=== PATIENT | male | born 1975 | race Caucasian/White ===

== ENCOUNTER → 2016-06-11 | Outpatient (CLI) | payer BC ==
[~2016-06-11] MED LIST: CYCL5TAB PO; MOME50SP5
[2016-06-11 13:41] LABS: ALT/SGPT 52 U/L (12-78); AST/SGOT 21 U/L (15-37); BLOOD UREA NITROGEN 27 mg/dl (7-18); CALCIUM 9.2 mg/dl (8.5-10.1); CARBON DIOXIDE 27 mmol/L (21-32); CHLORIDE 108 mmol/L (98-107); GLUCOSE 98 mg/dl (70-99); POTASSIUM 4.3 mmol/L (3.5-5.1); SODIUM 142 mmol/L (136-145)
[2016-06-11 13:43] LABS: ALB/GLOB RATIO 1.4 (0.9-2); ALKALINE PHOSPHATASE 59 U/L (45-117); CHOLESTEROL 212 mg/dl (0-200); CHOLESTEROL/HDL RATIO 4.9; HDL CHOLESTEROL 43 mg/dl; LDL CHOLESTEROL CALCULATED 144 mg/dl; TRIGLYCERIDES 125 mg/dl (0-150); VERY LOW DENSITY LIPOPROT CALC 25 mg/dl
== END | disposition home or self-care (01) ==
LOC: C.LABPBG 08:55
PROVIDERS: ATTEND Neuromusculoskeletal Medicine & OMM
DX: Z00.00 Encounter for general adult medical examination without abnormal findings (principal)

== ENCOUNTER → 2016-12-20 | Outpatient (CLI) | payer BC | END | disposition home or self-care (01) | LOC: C.LABPBG 09:28 | PROVIDERS: ATTEND Neuromusculoskeletal Medicine & OMM | DX: K76.0 Fatty (change of) liver, not elsewhere classified (principal) ==

== ENCOUNTER → 2017-03-27 | Outpatient (CLI) | payer BC ==
[2017-03-27 11:58] LABS: BASO % 0.4 %; BASO ABS # 0.02 K/uL (0-0.2); COMPLETE YES; EOS % 5.2 %; HEMATOCRIT 47.8 % (42-52); IG% 0.2 %; LYMPH % 22.8 %; LYMPH ABS # 1.09 K/uL (1.2-3.4); MEAN CELL VOLUME 91.6 fL (80-100); MEAN CORPUSCULAR HEMOGLOBIN 31.8 pg (25-34); MEAN CORPUSCULAR HGB CONC 34.7 g/dl (32-36); MEAN PLATELET VOLUME 10.8 fL (7.4-10.4); MONO % 10.2 %; NEUT % 61.2 %; PLATELET COUNT 219 K/uL (130-400); RED BLOOD COUNT 5.22 M/uL (4.7-6.1); WHITE BLOOD COUNT 4.79 K/uL (4.8-10.8)
[2017-03-27 12:36] LABS: ESTIMATED AVERAGE GLUCOSE 105 mg/dl; HA1C FLAG Normal (Normal)
[2017-03-27 12:46] LABS: ALT/SGPT 71 U/L (12-78); AST/SGOT 25 U/L (15-37); BLOOD UREA NITROGEN 24 mg/dl (7-18); BUN/CREATININE RATIO 20.7 (10-20); CALCIUM 8.9 mg/dl (8.5-10.1); CARBON DIOXIDE 25 mmol/L (21-32); CHLORIDE 107 mmol/L (98-107); CREATININE 1.18 mg/dl (0.60-1.40); GLUCOSE 107 mg/dl (70-99); HDL CHOLESTEROL 51 mg/dl; POTASSIUM 4.4 mmol/L (3.5-5.1); SODIUM 138 mmol/L (136-145)
[2017-03-27 12:57] LABS: ALB/GLOB RATIO 1.3 (0.9-2); ALKALINE PHOSPHATASE 67 U/L (45-117); CHOLESTEROL 225 mg/dl (0-200); CHOLESTEROL/HDL RATIO 4.4; LDL CHOLESTEROL CALCULATED 144 mg/dl; TRIGLYCERIDES 151 mg/dl (0-150); VERY LOW DENSITY LIPOPROT CALC 30 mg/dl
== END | disposition home or self-care (01) ==
LOC: C.LABPBG 08:13
PROVIDERS: ATTEND Family Medicine
DX: R20.2 Paresthesia of skin (principal); E78.5 Hyperlipidemia, unspecified

== ENCOUNTER → 2017-08-07 | Outpatient (CLI) | payer BC ==
--- NOTE | 2017-08-07 12:27 | DIAGNOSTIC IMAGING REPORT ---
NUCLEAR GASTRIC EMPTYING STUDY: CLINICAL HISTORY: R14.0 Abdominal [id number] Early [id number] COMPARISON STUDY: TECHNIQUE: Following the oral administration of 1.1 mCi of technetium 99m sulfur colloid in egg sandwich and 8 ounces of water, static abdominal images are performed anteriorly and posteriorly at 0 minutes, 1 hour, 2 hours, and 4 hour time intervals. Gastric emptying was calculated utilizing the geometric mean method. FINDINGS: There is approximately 68 % gastric activity remaining at the 1 hour time interval, 27 % at the 2 hour time interval (normal is less than 60%), and 5 % remaining at the 4 hour time interval (normal is less than 10%). These findings are consistent with a normal study IMPRESSION: Findings are consistent with a normal study. Electronically signed by: Barron Razo M.D. 08/07/2017 12:25 PM Dictated Date/Time: 08/07/2017 12:25 PM
== END | disposition home or self-care (01) ==
LOC: C.NUCL 07:49
PROVIDERS: ATTEND Family Medicine
DX: R68.81 Early satiety (principal); R14.0 Abdominal distension (gaseous)

== ENCOUNTER 2022-12-05 05:39 | Observation (INO) ==
--- NOTE | 2022-11-23 16:08 | Anesthesiology Consultation ---
Date of Service November 23, 2022 Assessment & Plan (1) Encounter for pre-operative examination: Plan - will attempt to obtain office note and testing from [facility] 11/07/22 ER visit. - cardiology clearance 11/21/22 [facility]: "...was seen at the end of [address] Espinal. At that time the patient was experiencing some shortness of breath and had a recent COVID infection. Patient went on to have a stress test that was negative. He had his blood pressure medication adjusted. His symptoms resolved and he has been doing well. Unfortunately, he has a cervical radiculopathy that will require surgery this plan for early December. He is here today for preoperative risk assessment. He has no ongoing cardiac symptoms today...The Reagan criteria would indicate the patient's risk for this surgery is 0.4%. No additional cardiac testing will change this risk assessment. He is currently optimally medically managed and should continue his blood pressure medication through the surgery. We will follow-up with the patient on an as-needed basis..." - COVID screening: Per documentation writer on 11/23/2022: Travel screen-returned from [place] 2 weeks ago, no known COVID-19 positive contacts or current COVID-19 related symptoms in past 2 weeks. To surgeon's discretion if preop COVID testing is needed. Chart Review Chart Review: Pending: Refer to Additional Notes / Consult section and Patient NOT seen in Pre Admission Testing History Surgery Operation Date: 12/05/22 11:05 Proposed Procedures p C6-C7 Anterior Cervical Discectomy and Fusion, Spinal Cord Monitoring - Dorian Martinez, Height/Weight Height: 5 ft 11 in Weight: 115.666 kg Allergies Allergy/AdvReac Type Severity Reaction Status Date / Time No Known Drug Allergies Allergy Verified 10/11/22 08:06 Medications Home Medications Medication Instructions Recorded Confirmed Last Taken clonazepam 0.5 mg tablet 0.5 mg PO HS 08/01/20 11/23/22 08/07/20 lamotrigine 250 mg tablet,extended 250 mg PO BID 08/01/20 11/23/22 08/08/20 07:00 release 24 hr pantoprazole 40 mg tablet,delayed 40 mg PO BID #60 tabs 08/08/20 11/23/22 Unknown release (Protonix) fexofenadine 180 mg tablet 180 mg PO DAILY PRN Allergy 09/12/20 11/23/22 Unknown (Jia Allergy) Symptoms #90 tabs fluticasone propionate 50 2 spray intranasal DAILY PRN 09/12/20 11/23/22 Unknown mcg/actuation nasal Allergy Symptoms #16 mL spray,suspension (Flonase Allergy Relief) losartan 100 mg tablet 100 mg PO QAM 10/11/22 11/23/22 Unknown Past Medical History Medical History (Updated 11/23/22 @ 16:16 by Richelle Esparza PA-C) Anxiety and depression Asthma hx-"diagnosed as asthma, used inhaler but wasn't helping, so stopped using">currently having a cough in the mornings-reason for upcoming EGD Bipolar disorder Chronic SI joint pain Environmental allergies hayfever Fatty liver GERD (gastroesophageal reflux disease) History of COVID-2019, and most recent 2020> resolved Hypertension developed after dx with covid Impingement syndrome of right shoulder Suspected sleep apnea per [facility] records, sleep study not completed to chart review Past Family History Family History Father Family hx of colon cancer Malignant neoplasm of esophagus Sister Anxiety Bipolar disorder Depression Mother Hypertension Grandfather (Paternal) Prostate cancer Other No family history of adverse response to anesthesia Denies family history of Ovarian cancer Myocardial infarction Breast cancer Past Surgical History Surgical History History of colonoscopy History of esophagogastroduodenoscopy (EGD) Hx of wisdom tooth extraction Social History Smoking Status: Former smoker tobacco type: cigarettes Do You Dip or Chew Tobacco: No Smoking End Date: 1.5 years ago Hx Alcohol Use: Yes Alcohol type: beer and wine alcohol intake frequency: holidays/special occasions only Hx Substance Use: No substance use type: does not use Lab Results Anesthesia Preop Results Results Anesthesia Widget: WBC 8.87 K/ul (4.8-10.8) 11/21/22 Hgb 16.4 g/dl (14.0-18.0) 11/21/22 Hct 46.4 % (42.0-52.0) 11/21/22 Plt 224 K/uL (130-400) 11/21/22 Na 137 mmol/L (136-145) 11/21/22 K 4.1 mmol/L (3.5-5.1) 11/21/22 Cl 103 mmol/L (98-107) 11/21/22 CO2 24 mmol/L (21-32) 11/21/22 BUN 29 mg/dl (6-23) H 11/21/22 Creat 1.18 mg/dl (0.6-1.4) 11/21/22 Glucose Level 101 mg/dl (70-99(Fasting)) H 11/21/22 PT 10.3 Seconds (9.0-12.0) 11/21/22 PTT 25.5 Seconds (21.0-31.0) 11/21/22 INR 0.9 (0.9-1.1) 11/21/22 Urine Color Yellow 11/21/22 Urine Appearance Clear (Clear) 11/21/22 Urine pH 6.0 (4.5-7.5) 11/21/22 Urine Specific [place] 1.020 (1.000-1.030) 11/21/22 Urine Protein Negative (Negative) 11/21/22 Urine Glucose (UA) Negative (Negative) 11/21/22 Urine Ketones Negative (Negative) 11/21/22 Urine Blood Negative (Negative) 11/21/22 Urine Nitrite Negative (Negative) 11/21/22 Urine Bilirubin Negative (Negative) 11/21/22 Urine Urobilinogen Negative (Negative) 11/21/22 Urine Leukocyte Esterase Negative (Negative) 11/21/22 Blood Type A Negative 11/21/22 Antibody Screen NEGATIVE 11/21/22 Testing Electrocardiogram Date: 11/21/22 NSR, rate 73 bpm Minimal voltage criteria for LVH, may be normal variant Chest X-Ray Date: 11/21/22 No active disease in the chest. Stress Test Date: 05/10/22 Exercise METS 10 MPHR 90% Negative for inducible ischemia EF 55-59% Grade I diastolic dysfunction Mild cLVH No significant valvular disease The proximal ascending thoracic aorta is borderline enlarged 4 cm Mildly enlarged aortic root at 4.5 cm Cervical Spine Date: 11/07/22 CT No evidence of acute osseous abnormality
[2022-12-05] MEDS ORDERED: ACETAMINOPHEN 500 MG TAB PO SCH (06:00)
[2022-12-05] MEDS ORDERED: LR 15ML/HR IV SCH (06:00)
[2022-12-05] MEDS ORDERED: CeleBREX 200 MG CAP PO SCH (06:00)
[2022-12-05] MEDS ORDERED: GABAPENTIN 900 MG DOSE PO SCH (06:00)
[2022-12-05] MEDS ORDERED: SODIUM CHLORIDE 0.9% 1,000 ML IV SCH (06:00)
[2022-12-05] MEDS ORDERED: ceFAZolin 2000MG 2,000 MG/15 ML SYR IV SCH (06:00)
[2022-12-05] MEDS ORDERED: DEXAMETHASONE SOD INJ 4 MG/ML VIAL ONE (07:09)
[2022-12-05] MEDS ORDERED: ROCURONIUM BROMIDE 10 MG/ML 5 ML VIAL IV ONE ×2 (07:09→08:10)
[2022-12-05] MEDS ORDERED: ONDANSETRON INJ 2 MG/ML 2 ML VIAL ONE (07:09)
[2022-12-05] MEDS ORDERED: LIDOCAINE 2% 2 ML VIAL/AMP(20MG/ML) INFIL ONE (07:09)
[2022-12-05] MEDS ORDERED: PROPOFOL IV EMULSION 10 MG/ML 20 ML VIAL IV ONE (07:09)
[2022-12-05] MEDS ORDERED: fentaNYL citrate PF 100 MCG/2 ML VIAL ONE ×2 (07:09→08:41)
[2022-12-05] MEDS ORDERED: SUGAMMADEX SODIUM 200 MG/2 ML VIAL IV ONE (07:10)
[2022-12-05] MEDS ORDERED: MIDAZOLAM HCL 1 MG/ML 2ML VIAL ONE (07:10)
[2022-12-05] MEDS ORDERED: ceFAZolin 330 MG/ML 1 GM VIAL ONE (07:14)
[2022-12-05] MEDS ORDERED: KETAMINE 50 MG/5 ML SYRINGE ONE (07:17)
[2022-12-05] MEDS ORDERED: ATROPINE SULFATE 0.1 MG/ML 10ML SYR IV PRN (07:24)
[2022-12-05] MEDS ORDERED: ePHEDrine sulfate 50 MG/ML AMP IV PRN (07:24)
[2022-12-05] MEDS ORDERED: HYDROmorphone INJ 2 MG/ML SYR/VIAL IV PRN (07:24)
[2022-12-05] MEDS ORDERED: PROMETHAZINE HCL 6.25 MG in SODIUM CHLORIDE 0.9% 50 ML IV PRN (07:24)
[2022-12-05] MEDS ORDERED: ONDANSETRON INJ 2 MG/ML 2 ML VIAL IV PRN ×2 (07:24→10:46)
[2022-12-05] MEDS ORDERED: fentaNYL citrate PF 100 MCG/2 ML VIAL IV PRN (07:24)
--- NOTE | 2022-12-05 07:36 | History & Physical Bridge Note ---
Date of Service December 05, 2022 History & Physical Bridge Note I have examined the patient, reviewed the History & Physical and in the interval since the performance of the History & Physical I have noted the following changes of clinical significance: no changes noted
--- NOTE | 2022-12-05 07:37 | History & Physical Report ---
Date of Service December 05, 2022 Assessment & Plan (1) Cervical radiculopathy: Plan: C6-C7 anterior cervical discectomy and fusion History of Present Illness Chief Complaint: Neck and arm pain Primary Care Provider: JOS Almeida This is a 39-year-old male presents with chronic persistent neck and arm pain and failing since course of nonoperative care is here for surgical invention. Allergies Allergy/AdvReac Type Severity Reaction Status Date / Time No Known Drug Allergies Allergy Verified 12/05/22 06:40 Home Medications Medication Instructions Recorded Confirmed Type clonazepam 0.5 mg tablet 0.5 mg PO HS 08/01/20 12/05/22 History lamotrigine 250 mg tablet,extended 250 mg PO BID 08/01/20 12/05/22 History release 24 hr pantoprazole 40 mg tablet,delayed 40 mg PO BID #60 tabs 08/08/20 12/05/22 Rx release (Protonix) fexofenadine 180 mg tablet 180 mg PO DAILY PRN Allergy 09/12/20 12/05/22 Rx (Jia Allergy) Symptoms #90 tabs fluticasone propionate 50 2 spray intranasal DAILY PRN 09/12/20 12/05/22 Rx mcg/actuation nasal Allergy Symptoms #16 mL spray,suspension (Flonase Allergy Relief) losartan 100 mg tablet 100 mg PO QAM 10/11/22 12/05/22 History Past Med/Surg History Medical History Anxiety and depression Asthma hx-"diagnosed as asthma, used inhaler but wasn't helping, so stopped using">currently having a cough in the mornings-reason for upcoming EGD Bipolar disorder Chronic SI joint pain Environmental allergies hayfever Fatty liver GERD (gastroesophageal reflux disease) History of COVID-19 2019, and most recent 2020> resolved Hypertension developed after dx with covid Impingement syndrome of right shoulder Suspected sleep apnea per [facility] records, sleep study not completed to chart review Surgical History History of colonoscopy History of esophagogastroduodenoscopy (EGD) Hx of wisdom tooth extraction Family History Father Family hx of colon cancer Malignant neoplasm of esophagus Sister Anxiety Bipolar disorder Depression Mother Hypertension Grandfather (Paternal) Prostate cancer Other No family history of adverse response to anesthesia Denies family history of Ovarian cancer Myocardial infarction Breast cancer Social History Smoking Status: Former smoker Smoking End Date: 1.5 years ago; Second Hand Exposure: No; Do You Dip or Chew Tobacco: No; Hx Alcohol Use: Yes Alcohol type: beer and wine Alcohol Intake Frequency: Monthly or Less Hx Substance Use: No Preferred Language: Czech Communication Ability: Effective Hearing Ability: Normal Vice President Digital Strategist Required: No Beliefs That Will Affect Care: None marital status: Current Living Situation: Family Current Living Situation Comment: LIVES WITH AND 2 KIDS current occupational status: employed How many Children do You have: 2 Feels Safe at Home: Yes Safety Concerns: Feels Safe At This Time Childhood Exposure to Second-Hand Smoke: No Diet: regular caffeine: Yes during the past year weight has: remained stable Dental Care, Regularly: Yes Physical Activity Frequency: 5-6 Times per Week Seatbelt Use: always Sunscreen Use: Yes Assistive Devices: Glasses Assistive Devices Comment: reading glasses Physical Exam Physical Exam: Patient is alert and oriented Heart regular rhythm Lungs clear Results & Data Results & Data Vital Signs (Past 12 Hours) Vital Signs Temp Pulse Resp BP Pulse Ox O2 Del Method 12/05/22 06:45 36.6 C 87 20 135/86 97 Room Air
[2022-12-05] MEDS ORDERED: FLOSEAL HEMOSTATIC MATRIX 10ML TOP ONE (08:41)
--- NOTE | 2022-12-05 09:09 | Operative Report ---
Post Operative Report Pre & Post Diagnosis Operation Date: 12/05/22 07:45 Pre-Op Diagnosis: Cervical radiculopathy Post-Op Diagnosis: Cervical radiculopathy I identified the patient and participated in the time-out.: Yes Procedure Operation Date: 12/05/22 07:45 Actual Procedures 1. Intracerebral discectomy with bilateral foraminotomies C6-7. #2 anterior cervical arthrodesis C6-7. #3 placement of Spira 8 mm cage with I factor C6-7. #4 application of K2 M plate and screws across C6-C7. Surgeon Dorian Martinez, Towel Hemmer [place] Estimated Blood Loss 10 Findings See Below The patient is 5 foot 11 weighing over 115 kg with a BMI in excess of 35. The patient brought habitus did create significant technical difficulty with positioning exposure. This at least 50% increased operative time. Specimens none Indications This is a 47-year-old male who presents with a work-related cervical disc injury and radiculopathy after failing since course of nonoperative care is here for surgical intervention. Description of Procedure Patient was met with identified informed consent obtained. Patient was then taken to the operative suite underwent patient placed in spine position the Cali table with head Servin head order. All bony promises well-padded eyes inspected to ensure no external pressure placed monitor at this point the anterior cervical spine was prepped and draped in a sterile fashion. The assistance of fluoroscopy identified the C6-C7 disc base and a transverse incision was placed along the right anterior aspect of the cervical spine overlying his region. Blunt dissection with assistance of bipolar electrocautery to form down to and exposing the anterior cervical spine at C6-7. Self-retaining tractors placed. Then performed a complete discectomy to see 6 C7 out to the uncovertebral's bilaterally. Henderson distraction pins were utilized to assist in visualization. Removed all posterior annular fibers longitudinal ligament bilateral foraminotomies performed. Endplates burred to subcortically and bone and a 8 mm Spira cage filled with I factor tapped position. Extract apparatus was removed and a K2 M plate and screws applied with the assistance of fluoroscopy. The incision was then copiously irrigated explored to ensure no damage to surrounding structures or remaining bleeding. 10 round ASYA drain inserted. The incision was then closed with 2-0 Vicryl subcutaneously and 4 Monocryl for final closure. Steri-Strip sterile dressings placed. Patient awakened taken to PACU stable condition. Please note spinal cord monitoring visualized at the procedure no changes noted. Lastly [place] is present at the entire surgeon while the patient positioning complex portion of the surgery and final skin closure. I attest to the content of the Intraoperative Record and any orders documented therein. Any exceptions are noted below.
--- NOTE | 2022-12-05 09:27 | Fluoroscopy Report ---
INTRAOPERATIVE RADIOGRAPHS CLINICAL HISTORY: C6-C7 spinal fusion. Fluoro time: 28 seconds Ka,r: 9.52 mGy FINDINGS: 3 spot fluoroscopic views of the cervical spine are presented. There has been discectomy at C6-C7 with anterior fusion at this level. The orthopedic hardware appears intact. An endotracheal tu be is in place. IMPRESSION: Intraoperative images of the cervical spine as above. Electronically signed by: Neil Bowden M.D. 12/05/2022 9:26 AM
--- NOTE | 2022-12-05 10:10 | Anesthesiology Progress Note ---
Date of Service December 05, 2022 Anesthesia Post Procedure Vital Signs Vital Signs: Temp Pulse Pulse Resp BP Pulse Ox O2 Del Method 12/05/22 10:00 36.4 C L 74 10 L 128/99 98 Room Air 12/05/22 09:50 36.4 C L 70 11 L 126/98 97 Room Air 12/05/22 09:40 76 13 138/97 97 Oxymask 12/05/22 09:30 73 13 132/88 99 Oxymask 12/05/22 09:21 36.3 C L 84 20 131/84 97 Oxymask 12/05/22 06:45 36.6 C 87 20 135/86 97 Room Air O2 Flow Rate 12/05/22 10:00 12/05/22 09:50 12/05/22 09:40 3 12/05/22 09:30 5 12/05/22 09:21 7 12/05/22 06:45 Pain Intensity Bilateral Head: Pain Intensity: 0 Transfer of Care Handoff Completed per policy Notes Mental Status: alert / awake / arousable Patient Amnestic to Procedure: Yes Nausea / Vomiting: adequately controlled Pain: adequately controlled Airway Patency, RR, SpO2: stable & adequate BP & HR: stable & adequate Hydration State: stable & adequate Anesthetic Complications: no major complications apparent
[2022-12-05] MEDS ORDERED: diphenhydrAMINE Capsule 25 MG CAP PO PRN (10:46)
[2022-12-05] MEDS ORDERED: dexAMETHasone 8 MG in SYRINGE 0 ML IV PRN (10:46)
[2022-12-05] MEDS ORDERED: FAMOTIDINE 20 MG TAB PO PRN (10:46)
[2022-12-05] MEDS ORDERED: NALOXONE HCL 0.4 MG/1 ML VIAL/CARP IV PRN (10:46)
[2022-12-05] MEDS ORDERED: DO NOT ADMINISTER PNEUMOCOCCAL VACCINE PRN (10:46)
[2022-12-05] MEDS ORDERED: hydrOXYzine HCl 25 MG TAB PO PRN (10:46)
[2022-12-05] MEDS ORDERED: ACETAMINOPHEN 1,000 MG/100 ML VIAL IV PRN (10:46)
[2022-12-05] MEDS ORDERED: LORazepam 0.5 MG TAB PO PRN (10:46)
[2022-12-05] MEDS ORDERED: HYDROmorphone INJ 0.5 MG/0.5 ML SYR IV PRN (10:46)
[2022-12-05] MEDS ORDERED: PROMETHAZINE HCL 12.5 MG in SODIUM CHLORIDE 0.9% 50 ML IV PRN (10:46)
[2022-12-05] MEDS ORDERED: DO NOT ADMINISTER FLU VACCINE PRN (10:46)
[2022-12-05] MEDS ORDERED: METOCLOPRAMIDE HCL INJ 5 MG/ML 2 ML VIAL IV PRN (10:46)
[2022-12-05] MEDS ORDERED: ONDANSETRON 4 MG OD TAB PO PRN (10:46)
[2022-12-05] MEDS ORDERED: ACETAMINOPHEN 500 MG TAB PO PRN (10:46)
[2022-12-05] MEDS ORDERED: SOD PHOSPHATE/SOD BIPHOSPHATE ENEMA 132 ML BTL PR PRN (10:46)
[2022-12-05] MEDS ORDERED: LORazepam 2 MG/1 ML VIAL IV PRN (10:46)
[2022-12-05] MEDS ORDERED: traMADol HCL 50 MG TABLET PO PRN (10:46)
[2022-12-05] MEDS ORDERED: MAGNESIUM HYDROXIDE SUSP 30 ML UDC PO PRN (10:46)
[2022-12-05] MEDS ORDERED: RACEPINEPHRINE 2.25% NEBU SOLN 0.5 ML VIAL INH PRN (10:46)
[2022-12-05] MEDS ORDERED: bisacodyL 10 MG SUPP PR PRN (10:46)
[2022-12-05] MEDS ORDERED: HYDROmorphone INJ 1 MG/ML SYRINGE IV PRN (10:46)
[2022-12-05] MEDS ORDERED: ALUMINUM/MAGNESIUM SUSP 30 ML UDC PO PRN (10:46)
[2022-12-05] MEDS: LACTATED RINGER'S 1,000 ML IV SCH ×2 (11:15→17:29)
[2022-12-05] MEDS: oxyCODONE HCL IR 5 MG TAB (IMMEDIATE RELEASE) PO PRN ×3 (11:24→20:19)
[2022-12-05] MEDS ORDERED: LOSARTAN POTASSIUM 50 MG TAB PO ONE (14:26)
[2022-12-05] MEDS: ceFAZolin 2000MG 2,000 MG/15 ML SYR IV SCH ×2 (16:06→23:54)
[2022-12-05] MEDS ORDERED: DOCUSATE SODIUM/SENNA 50/8.6MG TAB PO SCH (21:00)
[2022-12-05] MEDS ORDERED: clonazePAM 0.5 MG TAB PO SCH (21:00)
[2022-12-05] MEDS ORDERED: lamoTRIgine 100 MG TAB PO SCH (21:00)
[2022-12-05] MEDS: PANTOprazole 40 MG TAB PO SCH (21:49)
[2022-12-05] MEDS: lamoTRIgine 100 MG TAB PO SCH (21:49)
[2022-12-06] MEDS: oxyCODONE HCL IR 5 MG TAB (IMMEDIATE RELEASE) PO PRN ×2 (00:20→07:56)
[2022-12-06] MEDS: LACTATED RINGER'S 1,000 ML IV SCH (01:47)
[2022-12-06] MEDS ORDERED: POLYETHYLENE (MIRALAX) 17 GM PACK PO SCH (06:00)
[2022-12-06] MEDS: PANTOprazole 40 MG TAB PO SCH (07:57)
--- NOTE | 2022-12-06 08:54 | Discharge Summary ---
Date of Service December 06, 2022 Admission HPI Per Admitting Provider This is a 39-year-old male presents with chronic persistent neck and arm pain and failing since course of nonoperative care is here for surgical invention. Principal Diagnosis Cervical disc herniation with radiculopathy Discharge Data Allergies Allergy/AdvReac Type Severity Reaction Status Date / Time No Known Drug Allergies Allergy Verified 12/05/22 06:40 Procedures Performed Operation Date: 12/05/22 07:45 Actual Procedures p C6-C7 Anterior Cervical Discectomy and Fusion, Spinal Cord Monitoring(Not Applicable) - Dorian Martinez DO Ordered Studies 12/05/22 07:45 FL cervical 2-3V Routine Hospital Course (1) Cervical radiculopathy: Patient went anterior cervical discectomy fusion tolerated as well as taken orthopedic for postoperative. Postop day 1 he was up and ambulating swallowing well. No hoarseness. Excellent strength testing. ASYA drain decreasing proba roverto. Subsequent discharge home. Discharge orders instructions found in chart for further review. Total Time Total Time Spent Total Time Spent (In Minutes): 20 minutes Discharge Plan Discharge Items Patient Disposition: Home - Self-Care Reason For Visit: POSTOP Discharge Diagnosis: cervical radiculopathy Activity: As commented below Non-emergency contact: Primary Care Provider Call non-emergency contact if: you have any medication questions Follow-up/Referrals: Christine Darling CRNP [Primary Care Provider] - Diet: Regular Addtl Attending Provider Instructions: ACTIVITY RECOMMENDATIONS: SELF CARE INSTRUCTIONS AFTER CERVICAL FUSIONS 1. No smoking. Smoking drastically decreases the chance of a solid fusion. 2. No bending, lifting more than 5 pounds, or twisting (roll like a log when turning in bed). 3. You may shower 3 days after surgery. Thoroughly dry wound. Do not soak in the tub. 4. Cervical collar: Must be worn at all times including sleeping. You may remove the brace only to bath, eat and if you are sitting in a recliner. 5. Please walk as much as you can for exercise. Gradually increase the distance that you walk as your endurance increases. SPECIAL CARE INSTRUCTIONS: VERY IMPORTANT TO READ AND REVIEW A. Do not take any anti-inflammatory medications (i.e. Indocin, Advil, Aspirin, Naprosyn, Aleve, Motrin, etc.) as these may inhibit the chance of a solid fusion. Tylenol is okay to take. B. Your surgical incision has been closed with a cosmetic suture under the skin that will dissolve in about 6 weeks. In 14 days, you can use a pair of clean scissors and cut the suture that is left outside of the skin at the ends of your incision. C. Complications are uncommon, but please contact us if you have any signs or symptoms of: 1. wound infection (fever higher than 102.5 degrees F, redness, separation of wound, drainage, or increasing pain from the incision) 2. blood clots in legs (pain, swelling, redness and warmth in legs) 3. urinary tract infection (fever higher than 102.5 degrees, burning upon urination or increased frequency of urination) 4. nerve problems (inability to walk on your toes or heels, numbness, loss of bowel or bladder control) 5. any other symptoms that concern you. D. Please call the office at if you have any concerns or questions about your operation or recovery. MANAGING PAIN AFTER SPINAL SURGERY 1. Narcotic medication is intended for short-term use and will be provided for surgical pain. Surgical pain usually lasts for a period of 4-6 weeks. Narcotic medication includes Percocet, Vicodin, Darvocet, Tylenol #3 or Lortab. 2. Longer-term pain is more appropriately treated with non-narcotic medication such as Tylenol ES. 3. Muscle spasm is not appropriately treated with narcotics. Muscle relaxers such as Soma, Flexeril or Skelaxin can be used along with Tylenol ES. 4. Remember that we all live with some "aches and pains". This is not unusual or uncommon after an injury or as we get older. 5. We will provide appropriate medication within the normal guidelines of their prescribed use. We will also be very cautious and aware of potential abuse and extended duration of patients' medication needs. 6. Please allow 2-3 days to process refills. Prescriptions will not be mailed but must be picked up at the office. FOLLOW UP VISIT: Keep your scheduled follow-up appointment. Any questions, please call the office at . Pending Studies at Discharge: No Stand-Alone Forms: My [employer], Smoking Cessation Medications and DC Order Prescriptions: New tramadol 50 mg tablet 50 mg PO Q6H PRN (Reason: pain, moderate) Qty: 20 0RF oxycodone 5 mg tablet 5 mg PO Q6H PRN (Reason: pain) Qty: 20 0RF Continued fluticasone propionate [Flonase Allergy Relief] 50 mcg/actuation spray,suspension 2 spray INTRANASAL DAILY PRN (Reason: Allergy Symptoms) Qty: 16 5RF fexofenadine [Jia Allergy] 180 mg tablet 180 mg PO DAILY PRN (Reason: Allergy Symptoms) Qty: 90 1RF lamotrigine 250 mg Tablet Extended Release 24hr 250 mg PO BID clonazepam 0.5 mg tablet 0.5 mg PO HS pantoprazole [Protonix] 40 mg tablet,delayed release (DR/EC) 40 mg PO BID Qty: 60 5RF losartan 100 mg Tablet 100 mg PO QAM Discharge Orders: Discharge Order (Routine); Ordered 12/06/22 Ordered By: Dorian Martinez Admission Data Admit Date/Time: 12/05/22 09:12 Attending Provider: Dorian Martinez Admit Provider: Dorian Martinez Primary Care Provider: Christine Darling
[2022-12-06] MEDS ORDERED: LOSARTAN POTASSIUM 50 MG TAB PO SCH (09:00)
[2022-12-06] MEDS ORDERED: dexAMETHasone 6 MG in SYRINGE 0 ML IV SCH (09:00)
[2022-12-06] MEDS: lamoTRIgine 100 MG TAB PO SCH (09:27)
== END 2022-12-06 10:50 | disposition home or self-care (01) ==
LOC: ASU 05:39 → 3E 05:39
DX: Z79.899 Other long term (current) drug therapy; M54.12 Radiculopathy, cervical region; Z87.891 Personal history of nicotine dependence